=== PATIENT | female | born 1965 | race African-American/Black ===

== ENCOUNTER → 2017-08-20 | Outpatient (CLI) | payer OTHER | END | disposition home or self-care (01) | LOC: KCIC MAMMO 11:15 | DX: Z12.31 Encounter for screening mammogram for malignant neoplasm of breast (principal) | CPT/HCPCS: 77063; 77067 ==

== ENCOUNTER 2017-11-25 15:46 | Emergency (ER) | payer OTHER ==
[~2017-11-25] VITALS: Ht 170.2 cm; Wt 127.0 kg
--- NOTE | 2017-11-25 16:26 | PHYS DOC ---
Adult General Chief Complaint Chief Complaint: HYPERTENSION HPI HPI Patient is a 52 year old AA female who was sent to the ER by Dr. Stanford's office with complaints of intermittent pain in her left shoulder down to her left elbow for the last 4 days and high blood pressure. Pt states she has been taking phentermine to help with weight loss for the last month. She denies any chest pain, shortness of breath, nausea, vomiting, weakness, or swelling of her extremities. Patient states she has been having diaphoretic episodes for a few months. Currently she denies any pain in her left shoulder, she states that the pain shoots up to as high as 8 and that it waxes and wanes when it is present. Pt reports a history of migraines, diabetes, and high blood pressure, states she has been taking her medications as prescribed. She has not been monitoring her blood sugar because her glucometer is broken. Review of Systems Review of Systems Constitutional: Denies fever or chills [] Eyes: Denies change in visual acuity, redness, or eye pain [] HENT: Denies nasal congestion or sore throat [] Respiratory: Denies cough or shortness of breath [] Cardiovascular: Denies chest pain or palpitations GI: Denies abdominal pain, nausea, vomiting, or diarrhea [] : Denies dysuria or hematuria [] Musculoskeletal: Denies back pain; reports intermittent pain in her left shoulder that shoots down to her elbow for the last 4 days denies any injury Integument: Denies rash or skin lesions [] Neurologic: Denies headache, focal weakness or sensory changes [] All other systems were reviewed and found to be within normal limits, except as documented in this note. Current Medications Current Medications Current Medications Medications (Trade) Dose Ordered Sig/Gail Start Time Stop Time Status Last Admin Dose Admin Ketorolac Tromethamine (Toradol 15mg Vial) 15 mg 1X ONCE 11/25/17 20:15 11/25/17 20:16 DC 11/25/17 20:22 15 MG Sodium Chloride 1,000 ml @ 1,000 mls/hr 1X ONCE 11/25/17 18:30 11/25/17 19:29 DC 11/25/17 18:33 1,000 MLS/HR Allergies Allergies Allergies Coded Allergies Type Severity Reaction Last Updated Verified No Known Drug Allergies 11/25/17 No Physical Exam Physical Exam Constitutional: Well developed, well nourished, no acute distress, non-toxic appearance, obese. [] HENT: Normocephalic, atraumatic, bilateral external ears normal, oropharynx moist, no oral exudates, nose normal. [] Eyes: PERRLA, conjunctiva normal, no discharge. [] Neck: Normal range of motion, no tenderness, supple, no stridor. [] Cardiovascular:Heart rate regular rhythm, no murmur [] Lungs & Thorax: Bilateral breath sounds clear to auscultation [] Skin: Warm, dry, no erythema, no rash. [] Back: No tenderness, no CVA tenderness. [] Extremities: No tenderness, no cyanosis, no clubbing, ROM intact, no edema. [] Neurologic: Alert and oriented X 3, normal motor function, normal sensory function, no focal deficits noted. [] Psychologic: Affect normal, judgement normal, mood normal. [] Current Patient Data Vital Signs Vital Signs Date Time Temp Pulse Resp B/P (MAP) Pulse Ox O2 Delivery O2 Flow Rate FiO2 11/25/17 18:30 100 16 100 11/25/17 16:06 99.0 171/82 (111) Room Air 99.0 Lab Values Laboratory Tests Test 11/25/17 16:17 11/25/17 16:45 11/25/17 18:55 Glucose (Fingerstick) 195 mg/dL (70-99) H White Blood Count 6.7 x10^3/uL (4.0-11.0) Red Blood Count 4.84 x10^6/uL (3.50-5.40) Hemoglobin 13.8 g/dL (12.0-15.5) Hematocrit 41.3 % (36.0-47.0) Mean Corpuscular Volume 85 fL (79-100) Mean Corpuscular Hemoglobin 29 pg (25-35) Mean Corpuscular Hemoglobin Concent 34 g/dL (31-37) Red Cell Distribution Width 14.9 % (11.5-14.5) H Platelet Count 318 x10^3/uL (140-400) Neutrophils (%) (Auto) 56 % (31-73) Lymphocytes (%) (Auto) 37 % (24-48) Monocytes (%) (Auto) 6 % (0-9) Eosinophils (%) (Auto) 1 % (0-3) Basophils (%) (Auto) 1 % (0-3) Neutrophils # (Auto) 3.7 x10^3uL (1.8-7.7) Lymphocytes # (Auto) 2.5 x10^3/uL (1.0-4.8) Monocytes # (Auto) 0.4 x10^3/uL (0.0-1.1) Eosinophils # (Auto) 0.1 x10^3/uL (0.0-0.7) Basophils # (Auto) 0.1 x10^3/uL (0.0-0.2) Sodium Level 143 mmol/L (136-145) Potassium Level 3.5 mmol/L (3.5-5.1) Chloride Level 104 mmol/L (98-107) Carbon Dioxide Level 26 mmol/L (21-32) Anion Gap 13 (6-14) Blood Urea Nitrogen 17 mg/dL (7-20) Creatinine 1.1 mg/dL (0.6-1.0) H Estimated GFR (Cockcroft-Gault) 63.4 BUN/Creatinine Ratio 15 (6-20) Glucose Level 171 mg/dL (70-99) H Calcium Level 9.5 mg/dL (8.5-10.1) Total Bilirubin 0.2 mg/dL (0.2-1.0) Aspartate Amino Transferase (AST) 14 U/L (15-37) L Alanine Aminotransferase (ALT) 23 U/L (14-59) Alkaline Phosphatase 97 U/L (46-116) Troponin I Quantitative < 0.017 ng/mL (0.000-0.055) < 0.017 ng/mL (0.000-0.055) UD-Cnd-P-Type Natriuretic Peptide < 5 pg/mL (0-124) Total Protein 7.7 g/dL (6.4-8.2) Albumin 3.7 g/dL (3.4-5.0) Albumin/Globulin Ratio 0.9 (1.0-1.7) L Laboratory Tests 11/25/17 16:45 Laboratory Tests 11/25/17 16:45 EKG EKG 1609 EKG sinus tach, no STEMI read by Dr. Burch[ 1845 EKG sinus rhythm no STEMI read by Dr. Borges] Radiology/Procedures Radiology/Procedures PROCEDURE: CHEST PA & LATERAL CHEST PA LATERAL History: ER PATIENT. HYPERTENSION. TACHYCARDIA. LEFT ARM PAIN Hx HTN, DIABETES. NO PRIORS. Comparison: None are available Heart size: Within normal limits. Pat/mediastinum: There is mild fullness of the right inferior hilum. This could represent mild lymph node enlargement or small mass. Lungs: No focal airspace consolidation. Pleura: No significant effusion. Mild smooth pleural thickening on the right. Greatest at the right apex. Pneumothorax: None visualized Bones: Regional skeleton appears grossly intact. Miscellaneous: None Impression: 1. Mild nodular prominence of the right inferior hilum. Significance uncertain, but could represent a small mass or mild lymph node enlargement. If no prior outside chest radiograph available for comparison, CT chest could further evaluate. 2. Mild right pleural thickening, greatest superiorly. 3. No evidence of acute infiltrate.[] Course & Med Decision Making Course & Med Decision Making Pertinent Labs and Imaging studies reviewed. (See chart for details) Dx: adverse drug effect, left shoulder strain DDX: ACS, MO, GERD EKGs x2 and troponin <0.017 x2 in ER. Pt's blood pressure returned to normal. Pt was given 1 L of NS in the ER. Instructed pt to stop taking phentermine for weight loss as this causes hypertension and tachycardia. Pt was given 15 mg IV toradol for shoulder pain and Rx written for orphenadrine. Continue taking your blood pressure medication as prescribed. Follow up with your primary care doctor in 2-3 days for re-evaluation. Return to the ER if your symptoms worsen Dragon Disclaimer Dragon Disclaimer This electronic medical record was generated, in whole or in part, using a voice recognition dictation system. Departure Departure Impression: Primary Impression: Adverse drug effect Additional Impression: Left shoulder strain Disposition: 01 HOME, SELF-CARE Condition: STABLE Referrals: JUAN JOSE STANFORD MD (PCP) Patient Instructions: Shoulder Pain, Shoulder, Range of Motion Exercises Additional Instructions: Fill prescription and take as directed for shoulder pain. Stop taking Phentermine. Continue taking your blood pressure medication as prescribed. Follow up with your primary care doctor in 2-3 days for re-evaluation. Return to the ER if your symptoms worsen. Scripts Orphenadrine Citrate (ORPHENADRINE CITRATE) 100 Mg Tablet.er 1 TAB PO BID PRN for PAIN for 10 Days, #20 TAB 0 Refills Prov: BOGUSLAW,WILMA D DIRECTOR OF GIFT PLANNING 11/25/17 Naproxen (NAPROXEN) 500 Mg Tablet.dr 1 TAB PO BID PRN for PAIN, #20 TAB 0 Refills Prov: WILMA MACARIO APRN 11/25/17 Problem Qualifiers Primary Impression: Adverse drug effect Encounter type: initial encounter Qualified Codes: T50.905A - Adverse effect of unspecified drugs, medicaments and biological substances, initial encounter Additional Impression: Left shoulder strain Encounter type: initial encounter Qualified Codes: S46.912A - Strain of unspecified muscle, fascia and tendon at shoulder and upper arm level, left arm , initial encounter WILMA MACARIO APRN Nov 25, 2017 16:26
--- NOTE | 2017-11-25 16:27 | EKG ---
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
[2017-11-25 16:56] LABS: BASO # 0.1 x10^3/uL (0.0-0.2); BASO % 1 % (0-3); EOS # 0.1 x10^3/uL (0.0-0.7); EOS % 1 % (0-3); HEMATOCRIT 41.3 % (36.0-47.0); HEMOGLOBIN 13.8 g/dL (12.0-15.5); LYMPH # 2.5 x10^3/uL (1.0-4.8); LYMPH % 37 % (24-48); MEAN CORPUSCULAR HEMOGLOBIN 29 pg (25-35); MEAN CORPUSCULAR HGB CONC 34 g/dL (31-37); MEAN CORPUSCULAR VOLUME 85 fL (79-100); MONO # 0.4 x10^3/uL (0.0-1.1); MONO % 6 % (0-9); NEUT # 3.7 x10^3uL (1.8-7.7); NEUT % 56 % (31-73); PLATELET COUNT 318 x10^3/uL (140-400); RED BLOOD COUNT 4.84 x10^6/uL (3.50-5.40); RED CELL DISTRIBUTION WIDTH 14.9 % (11.5-14.5); WHITE BLOOD COUNT 6.7 x10^3/uL (4.0-11.0)
[2017-11-25 17:10] LABS: CALCIUM 9.5 mg/dL (8.5-10.1); CREATININE 1.1 mg/dL (0.6-1.0); GFR 63.4; POTASSIUM 3.5 mmol/L (3.5-5.1)
--- NOTE | 2017-11-25 17:12 | RAD ---
CHEST PA LATERAL History: ER PATIENT. HYPERTENSION. TACHYCARDIA. LEFT ARM PAIN Hx HTN, DIABETES. NO PRIORS. Comparison: None are available Heart size: Within normal limits. Pat/mediastinum: There is mild fullness of the right inferior hilum. This could represent mild lymph node enlargement or small mass. Lungs: No focal airspace consolidation. Pleura: No significant effusion. Mild smooth pleural thickening on the right. Greatest at the right apex. Pneumothorax: None visualized Bones: Regional skeleton appears grossly intact. Miscellaneous: None Impression: 1. Mild nodular prominence of the right inferior hilum. Significance uncertain, but could represent a small mass or mild lymph node enlargement. If no prior outside chest radiograph available for comparison, CT chest could further evaluate. 2. Mild right pleural thickening, greatest superiorly. 3. No evidence of acute infiltrate. Electronically signed by: Rios Hand MD (11/25/2017 5:08 PM) [facility]
[2017-11-25 17:16] LABS: ALBUMIN 3.7 g/dL (3.4-5.0); ALBUMIN/GLOBULIN RATIO 0.9 (1.0-1.7); TOTAL BILIRUBIN 0.2 mg/dL (0.2-1.0); TOTAL PROTEIN 7.7 g/dL (6.4-8.2)
[2017-11-25 18:30] VITALS: BP 129/89
[2017-11-25] MEDS ORDERED: IV NORMAL SALINE 1000ML BAG 1,000 ML IV ONE (18:30)
--- NOTE | 2017-11-25 19:39 | EKG ---
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
[2017-11-25] MEDS ORDERED: KETOROLAC 15 MG/ML VIAL. IV ONE (20:15)
[2017-11-25] MEDS ORDERED: ORPH100T PO (20:28)
[2017-11-25] MEDS ORDERED: NAPR500T8 PO (20:28)
== END 2017-11-25 20:47 | disposition home or self-care (01) ==
LOC: ER 15:46
DX: S46.911A Strain of unspecified muscle, fascia and tendon at shoulder and upper arm level, right arm, initial encounter (principal); T50.5X5A Adverse effect of appetite depressants, initial encounter; I10 Essential (primary) hypertension; G43.909 Migraine, unspecified, not intractable, without status migrainosus; E11.9 Type 2 diabetes mellitus without complications; X58.XXXA Exposure to other specified factors, initial encounter; Y93.89 Activity, other specified; Y92.89 Other specified places as the place of occurrence of the external cause; Y99.8 Other external cause status
CPT/HCPCS: 36415; 71046; 80053; 82962; 83880; 84484; 85025; 93005; 96374; 99285; J1885; J7030

== ENCOUNTER 2017-12-16 10:49 | Emergency (ER) | payer OTHER ==
[~2017-12-16] VITALS: Ht 170.2 cm; Wt 127.0 kg
[~2017-12-16 10:49] MED LIST: NAPR500T8 PO; ORPH100T PO
[2017-12-16 11:15] VITALS: BP 149/81
--- NOTE | 2017-12-16 11:43 | RAD ---
History: Left hip pain for 3 weeks. No known injury. Comparison: None. Findings: AP view of the pelvis. AP and frog-leg views of left hip. Mild degeneration of the pubic symphysis is seen. Moderate sacroiliac degeneration is present. No acute fracture or dislocation is identified. Minimal left hip degeneration is seen. Impression: Minimal degeneration. No acute osseous abnormality identified. Electronically signed by: Rios Rodriguez MD (12/16/2017 11:39 AM) [place] [id number]
--- NOTE | 2017-12-16 12:05 | RAD ---
LUMBAR SPINE 2-3V Clinical Indication: LOW BACK, LT HIP PAIN X 3 WEEKS, NO KNOWN INJURY Comparison: Lumbar spine, 3 views, August 20, 2008. Findings: 5 lumbar type vertebral bodies. Grade 1 anterolisthesis of L4 on L5. Finding is new from prior study. Mild disc space narrowing of L4/L5. Other disc spaces are maintained. Mild degenerative endplate spurring. No loss of vertebral body height. IMPRESSION: 1. No compression fracture. 2. Grade 1 anterolisthesis of L4 on L5. Electronically signed by: Iván Tang MD (12/16/2017 12:02 PM) [id number]
--- NOTE | 2017-12-16 12:58 | PHYS DOC ---
Past Medical History Past Medical History: Hypertension Past Surgical History: Cholecystectomy, Hysterectomy Additional Past Surgical Histo: breast tumor removal Alcohol Use: None Drug Use: None Adult General Chief Complaint Chief Complaint: HIP PAIN HPI HPI Patient is a 52 year old female with history of hypertension who presents today complaining of 10 out of 10 left low back pain/hip pain radiating to the left lower extremity that has been going on for 3 weeks. Patient denies any injury. She states the pain is worse on certain sitting positions. She describes the pain as sharp and intermittent. She states she would like us to fix this problem. Patient denies any loss of bowel bladder function. Review of Systems Review of Systems Constitutional: Denies fever or chills [] : Denies dysuria or hematuria [] Musculoskeletal: Reports left hip pain radiating to the left lower extremity. Integument: Denies rash or skin lesions [] Neurologic: Denies headache, focal weakness or sensory changes [] All other systems were reviewed and found to be within normal limits, except as documented in this note. Allergies Allergies Allergies Coded Allergies Type Severity Reaction Last Updated Verified No Known Drug Allergies 11/25/17 No Physical Exam Physical Exam Constitutional: Well developed, well nourished, no acute distress, non-toxic appearance. [] Abdomen: Bowel sounds normal, soft, no tenderness, no masses, no pulsatile masses. [] Skin: Warm, dry, no erythema, no rash. [] Back: Obese patient, slight tenderness on palpation of the left SI joint. Tenderness, no CVA tenderness. [] Extremities: No tenderness, no cyanosis, no clubbing, ROM intact, no edema. [] Neurologic: Alert and oriented X 3, normal motor function, normal sensory function, no focal deficits noted. [] Psychologic: Affect normal, judgement normal, mood normal. [] Current Patient Data Vital Signs Vital Signs Date Time Temp Pulse Resp B/P (MAP) Pulse Ox O2 Delivery O2 Flow Rate FiO2 12/16/17 11:15 98.2 109 16 149/81 (103) 100 Room Air 98.2 EKG EKG [] Radiology/Procedures Radiology/Procedures PROCEDURE: LUMBAR SPINE 2-3V LUMBAR SPINE 2-3V Clinical Indication: LOW BACK, LT HIP PAIN X 3 WEEKS, NO KNOWN INJURY Comparison: Lumbar spine, 3 views, August 20, 2008. Findings: 5 lumbar type vertebral bodies. Grade 1 anterolisthesis of L4 on L5. Finding is new from prior study. Mild disc space narrowing of L4/L5. Other disc spaces are maintained. Mild degenerative endplate spurring. No loss of vertebral body height. IMPRESSION: 1. No compression fracture. 2. Grade 1 anterolisthesis of L4 on L5. Electronically signed by: Iván Tang MD (12/16/2017 12:02 PM) [id number] DICTATED and SIGNED BY: IVÁN TANG MD DATE: 12/16/17 1159 PROCEDURE: HIP LEFT 2V WITH PELVIS History: Left hip pain for 3 weeks. No known injury. Comparison: None. Findings: AP view of the pelvis. AP and frog-leg views of left hip. Mild degeneration of the pubic symphysis is seen. Moderate sacroiliac degeneration is present. No acute fracture or dislocation is identified. Minimal left hip degeneration is seen. Impression: Minimal degeneration. No acute osseous abnormality identified. Electronically signed by: Rios Desouza MD (12/16/2017 11:39 AM) [id number] DICTATED and SIGNED BY: RIOS DESOUZA MD DATE: 12/16/17 1138 Course & Med Decision Making Course & Med Decision Making Pertinent Labs and Imaging studies reviewed. (See chart for details) This is a 52-year-old female patient presenting to the ED today with left low back pain/hip pain radiating to the left lower extremity, no known injury. Left hip x-rays interpreted by radiologist were noted for DJD otherwise no acute findings. Lumbar spine x-rays interpreted by radiologist were negative fracture , noted for grade 1 anterolisthesis of L4 on L5. Patient was discharged with diclofenac, Medrol Dosepak, Valium. Provided pain clinic, she has a PCP, also provided neurosurgeon for follow-up. Dragon Disclaimer Dragon Disclaimer This electronic medical record was generated, in whole or in part, using a voice recognition dictation system. Departure Departure Impression: Primary Impression: Sciatica, left side Additional Impressions: Degenerative joint disease (DJD) of hip Left hip pain Disposition: 01 HOME, SELF-CARE Condition: STABLE Referrals: RIOS WRIGHT MD (PCP) follow up in one week SARAH PATRICK MD follow up in one week NUNO BUSTOS MD follow up in one week Patient Instructions: Arthritis, Nonspecific, Hip Pain, Sciatica Additional Instructions: You were evaluated in the emergency room and provided a couple's specialists for follow-up. Contact the offices and set up a follow-up appointment. Try to exercise and lose weight. Scripts Methylprednisolone (MEDROL) 4 Mg Tab.ds.pk 1 PKG PO UD, #1 PKG Prov: ARTEMDICKCHRISTIANE APRN 12/16/17 Diclofenac Sodium (DICLOFENAC SODIUM) 50 Mg Tablet.dr 1 TAB PO BID, #30 TAB 0 Refills Prov: CHRISTIANE PIMENTEL APRN 12/16/17 Diazepam (VALIUM) 5 Mg Tablet 5 MG PO TID, #20 TAB Prov: CHRISTIANE PIMENTEL APRN 12/16/17 Problem Qualifiers Additional Impressions: Degenerative joint disease (DJD) of hip Osteoarthritis type: unspecified Laterality: left Qualified Codes: M16.12 - Unilateral primary osteoarthritis, left hip MARGARITOCHRISTIANE HERNANDEZ Dec 16, 2017 12:58
[2017-12-16] MEDS ORDERED: DIAZ5TAB PO (13:03)
[2017-12-16] MEDS ORDERED: METH4TAB2 PO (13:03)
[2017-12-16] MEDS ORDERED: DICL50TA4 PO (13:03)
== END 2017-12-16 13:14 | disposition home or self-care (01) ==
LOC: ER 10:49
DX: M16.12 Unilateral primary osteoarthritis, left hip (principal); M54.42 Lumbago with sciatica, left side; I10 Essential (primary) hypertension; Z90.49 Acquired absence of other specified parts of digestive tract; Z90.710 Acquired absence of both cervix and uterus; E66.9 Obesity, unspecified; Z68.41 Body mass index [BMI] 40.0-44.9, adult
CPT/HCPCS: 72100; 73502; 99284

== ENCOUNTER → 2018-02-19 | Outpatient (CLI) | payer OTHER ==
[~2018-02-19] MED LIST changes: +DIAZ5TAB PO; +DICL50TA4 PO; +METH4TAB2 PO
--- NOTE | 2018-02-19 13:16 | KCIC ---
MRI Lumbar Spine without contrast History: Left sciatic nerve pain, low back pain, progressive left leg pain and spasms Technique: Multiplanar, multi sequential noncontrast MR imaging was performed of the lumbar spine. Comparison: None Findings: Lumbar vertebral body stature is maintained. There is grade 1 anterior spondylolisthesis L4-5. There is mild degenerative disc disease at L5-S1 and L4-5. There are small hemangiomas such as of L4, L3, and L2 vertebral bodies. 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 T10-11: This level was not included on the axial images, barely included on sagittal images. There is likely posterior protrusion at this level. T11-12: This level was not included on the axial images. There is posterior protrusion/small extrusion with likely mild spinal stenosis. L3-L4: There is mild prominence of posterior epidural fat. There is mild buckling of the ligamentum flavum. Spinal canal and neural foramina are overall adequate. L4-L5: There is mild facet hypertrophic change, some fluid in the left facet articulation. There is mild buckling of the ligamentum flavum. There is mild partial uncovering of the posterior aspect of the disc due to spondylolisthesis, superimposed minimal bulge and also superimposed protrusion more eccentric to the inferior left neural foramen and left extraforaminal region. There is left posterior annular tear. There is moderate to severe narrowing of the left neural foramen by disc osteophyte complex and protrusion with contact of the undersurface exiting left L4 nerve root in the neural foramen greater distally, also contacted in the proximal extraforaminal region. There is moderate narrowing of the far lateral recesses bilaterally with contact of the descending L5 nerve roots, mild narrowing of the transverse dimension of the central canal. L5-S1: There is negligible disc osteophyte complex greater in the inferior left neural foramen and far left lateral recess, near the descending left S1 nerve root without displacement. There is [id number] narrowing of the inferior left neural foramen with contact undersurface exiting left L5 nerve root, right neural foramen overall adequate. Impression: 1. There is moderate narrowing of the far lateral recesses bilaterally at L4-5 with contact of the descending L5 nerve roots. There is moderate to severe narrowing of the left L4-5 neural foramen in part by disc osteophyte complex and protrusion with contact of the exiting left L4 nerve root in the neural foramen and proximal extraforaminal region. There is also [id number] narrowing of the left L5-S1 neural foramen. 2. There is mild degenerative disc disease L4-5 and L5-S1. There is grade 1 anterior spondylolisthesis L4-5 at which there is facet degenerative change. 3. Not fully evaluated, there are likely protrusions at T10-11 and T11-12. Electronically signed by: Keith Reyes MD (02/19/2018 1:12 PM) [id number]
== END | disposition home or self-care (01) ==
LOC: KCIC MRI 11:25
PROVIDERS: ATTEND Family Medicine
DX: M51.17 Intervertebral disc disorders with radiculopathy, lumbosacral region (principal); M43.16 Spondylolisthesis, lumbar region; M25.78 Osteophyte, vertebrae
CPT/HCPCS: 72148

== ENCOUNTER → 2018-04-08 | Outpatient (CLI) | payer OTHER ==
[~2018-04-08] MED LIST changes: +ASPI81TA50 PO; +ATOR10TA60 PO; +CYCL10TA2 PO; +DAPA5TAB PO; +DICL75TA PO; +LOSA1TAB22 PO; +TOPI25CA12 PO
--- NOTE | 2018-04-08 21:02 | PAIN ---
DATE OF SERVICE: 04/08/2018 INITIAL CONSULTATION FOR PAIN CLINIC CHIEF COMPLAINT: Low back and left lower extremity pain. HISTORY OF PRESENT ILLNESS: This is a 53-year-old female who returned with history of low back and left lower extremity pain for several months about 4 months, not a result of any specific injury or action she is aware of, but getting worse with walking, standing, change in positions, especially sitting at work for a prolonged period of time greater than an hour. The patient reports it awakens her from sleep at least once or twice a night, does not affect her bowel or bladder control. It does affect her ability to walk significantly. She has been limping with favoring her left lower extremity. The patient reports pain is intermittent in intensity, but always present, changes during the day with activity, has tingling, numbness, radiating, sharp, throbbing and stabbing across the low back and radiating to the left lower extremity, some in the right leg as well, mostly in the anterior aspect of the thigh, medial thigh, medial lower leg into the foot involving primarily the great toe, but all the toes with tingling and numbness in the foot, also in the posterior gluteus, posterior thighs bilaterally with a cramping sensation. The patient reports she has had physical therapy about 2 months ago, which was only temporarily helpful, did not change, decrease the pain significantly at all. She has been doing the exercises from the therapy since that time as well. She also tried a muscle relaxer, she is not sure of the name and naproxen, which does help the pain very significantly. She did have a Medrol Dosepak; however, from her primary physician, which helped significantly about 75% for about a week until she was taking and the pain returned slowly, but is not quite at baseline level even now and that was about a month ago. The patient did have an MRI scan of the lumbar spine showing moderate narrowing of the far lateral recess, bilateral L4-L5 with contact to descending L5 nerve root, moderate to severe narrowing of the left L4-L5 neural foramen in part by disk osteophyte complex and protrusion with contact of the exiting left L4 nerve root in the neural foramen and proximal extraforaminal region with [id number] narrowing of the left L5-S1 neural foramen. The patient rates her disability rate from 0-10, 10 being the worst, is a 6 with family and home responsibilities and recreation and social activity and sexual behavior and self-care, 5 with occupation activities and 4 with life support activities. The patient reports no loss of motor function with significant fatigability, left lower extremity compared to the right when sitting and walking. PAST MEDICAL HISTORY: Significant for type 2 diabetes, cigarette smoking about a third of a pack a day for the past 26 years, history of hypertension, obesity. PREVIOUS SURGERIES: Include hysterectomy 2004, cholecystectomy and right breast cyst, which was benign. CURRENT MEDICATIONS: Include diclofenac, losartan, atorvastatin, topiramate, cyclobenzaprine, daily baby aspirin and Farxiga for diabetes. ALLERGIES: The patient has no known drug allergies. FAMILY HISTORY: Significant for no major medical problems or conditions that she reports. SOCIAL HISTORY: The patient drinks alcohol about once every 2 months, smokes about a one-third pack of cigarettes and has for many years. Does not use any illegal, illicit or recreational drugs or other substances. 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 REVIEW OF SYSTEMS: The patient's review of systems is positive for those items mentioned in history of present illness. All systems reviewed and otherwise negative. It is complete, full and well documented on the patient's chart. PHYSICAL EXAMINATION: VITAL SIGNS: The patient's blood pressure is 155/83, pulse 109, respirations 17, temperature is 97.7 degrees Fahrenheit, height is 5 feet 1 inches, weight 289 pounds. GENERAL: The patient is awake, alert, oriented, appropriate, very pleasant demeanor. HEENT: Head shows normocephalic, atraumatic. Extraocular movements intact and symmetrical. Oral cavity: Mucous membranes are moist and pink. Dentition is intact. NECK: Shows anterior throat supple without palpable lymphadenopathy noted. Swallow reflex symmetrical. CHEST: Shows normal with inspection. Breath sounds clear to auscultation bilaterally. HEART: Shows S1, S2 clear. No murmurs auscultated. ABDOMEN: Obese, soft, nontender, nondistended. No palpable organomegaly is noted. No rebound or guarding demonstrated. BACK: Shows spine grossly in the midline. Normal appearing thoracic kyphosis and lumbar lordotic curvature. Lumbar paraspinous muscle shows symmetrical on inspection. On palpation shows some moderate tenderness but only diffusely without radiation. The patient shows good rotational motion of lumbar spine, both laterally as well as extension and flexion without significant increase in pain. No tenderness over the sacrum or sacroiliac region. No spinous processes. EXTREMITIES: Lower extremities show deep tendon reflexes 2+ in the patellar, 1+ talocalcaneal tendon. Peripheral pulses are 1+ posterior tibia. No peripheral edema is noted. Lower extremities are warm and dry to touch, equal in color and appearance bilaterally. The patient's straight leg raise noted to be positive on the left at about 40 degrees with decreased pain with knee flexion, but right side is negative. Gaenslen's and Cosme's maneuvers are negative bilaterally. The patient is able to stand, stand on her toes without significant difficulty or loss of balance, is favoring her left lower extremity with walking and does have slight antalgic gait. Denies any assistive devices, but does have a slight limp when she ambulates. SKIN: Shows warm and dry, good turgor. No edema. No sores, rashes or bruising. IMPRESSION: 1. This is a 53-year-old female with about a 4-month history of increasing pain, low back, left lower extremity in a radicular pattern in L4-L5 dermatomal distribution, status post physical therapy as well as doing home exercises and walking daily with still significant radicular pain in this distribution. 2. Type 2 diabetes. 3. Hypertension. 4. Cigarette smoking. 5. Obesity. PLAN: Options were discussed with the patient including conservative medical management, physical therapy, interventional techniques and she has done physical therapy with some minimal decrease in pain and continues to do stretching and strengthening exercises daily. We discussed interventional techniques. She would like to pursue a lumbar epidural steroid injection. We discussed this with using description as well as anatomical models to describe the procedure. The patient wait for preauthorization and we will have her return to clinic once authorization is obtained for a L4-L5 lumbar epidural steroid injection with the patient's history and MRI scan findings as noted. We will maintain exercise and stretching activities and we will wait for preauthorization and have her return for lumbar epidural steroid injection at that time. NUNO BUSTOS MD DR: SADI/ramila JOB#: [id number] / [id number] Rios Barba MD
== END | disposition home or self-care (01) ==
LOC: PNCL 12:39
PROVIDERS: ATTEND Anesthesiology
DX: M79.605 Pain in left leg (principal); M54.5 Low back pain; E11.9 Type 2 diabetes mellitus without complications; I10 Essential (primary) hypertension; F17.210 Nicotine dependence, cigarettes, uncomplicated; E66.9 Obesity, unspecified
CPT/HCPCS: G0463

== ENCOUNTER → 2018-04-27 | Outpatient (CLI) | payer OTHER ==
[~2018-04-27] MED LIST changes: +IOHEXOL 180 MG/ML 10 ML VIAL. ONE; +methylPREDNISolone ACETATE 40 MG/ML VIAL. ONE; +methylPREDNISolone ACETATE 80 MG/ML VIAL. ONE
--- NOTE | 2018-04-28 04:42 | PAIN ---
DATE OF SERVICE: 04/27/2018 PROGRESS NOTE FOR PAIN CLINIC DIAGNOSIS: Lumbar radiculopathy with lumbar degenerative disk disease. HISTORY OF PRESENT ILLNESS: The patient is a 53-year-old female who returns for followup status post initial evaluation and preauthorization for injection today. The patient would like to proceed. She has obtained this. Reports pain in the low back, bilateral lower extremity as it was previously, left slightly more than the right in the posterior gluteus, posterior lateral thigh, lateral anterior thigh, medial thigh on the left side, radiating with tingling, burning, numbness, sharp and shooting pain, rates a 7 on a scale of 10 at its worst, average and at its least and is a 7 today. The patient reports it can be constant with walking and standing and is awakening her from sleep as well. The patient reports no new motor or sensory deficits and no new bowel or bladder incontinence. PHYSICAL EXAMINATION: VITAL SIGNS: The patient's blood pressure is 174/101, pulse 114, respirations are 18 and temperature is 98.2 degrees Fahrenheit. Height is 5 feet 1 inch. GENERAL: The patient is awake, alert, oriented, appropriate and very pleasant demeanor. HEENT: Head shows normocephalic and atraumatic. Extraocular movements are intact and symmetrical. Oral cavity: Mucous membranes moist and pink. Dentition is intact. NECK: Shows anterior throat supple without palpable lymphadenopathy noted. Swallow reflex is symmetrical. CHEST: Shows normal on inspection. Breath sounds clear to auscultation bilaterally. HEART: Shows S1 and S2 clear. No murmurs auscultated. ABDOMEN: Soft, nontender and nondistended. No palpable organomegaly is noted. No rebound or guarding demonstrated. BACK: Shows spine grossly in the midline. Normal appearing thoracic kyphosis and lumbar lordotic curvature. Lumbar paraspinous muscle shows symmetrical on inspection and on palpation shows some moderate tenderness diffusely without radiation and again tattooing is noted. EXTREMITIES: The patient shows lower extremity deep tendon reflexes at 2+ in the patellar, 1+ tendo-calcaneus tendons. Motor exam is approximately 4 on a scale of 5 on the left and 5/5 on the right with dorsiflexion and extension. Peripheral pulses are 1+ posterior tibial. No peripheral edema is noted bilaterally. Options were discussed with the patient. The patient's old chart was reviewed as well as her current medication regimen updated. Current review of systems updated today as well. We will proceed with a lumbar epidural steroid injection today with fluoroscopic guidance. Risks were again discussed including, but not limited to bleeding, infection, possibility of epidural hematoma, subsequent neurological compromise, dural puncture, headaches, spinal cord and/or nerve damage, side effects of steroid medication and poor results regarding pain control. The patient understands and wished to proceed. The patient will return to the clinic in approximately 2 weeks for followup, was counseled as to return appointment, activity level and side effects to be aware of. DIAGNOSIS: Lumbar radiculopathy with lumbar degenerative disk disease. PROCEDURE: Lumbar epidural steroid injection, translaminar approach at L4-L5 level using C-arm fluoroscopic guidance under sterile prep and drape using local anesthetic. MEDICATION INJECTED: A total of 120 mg Depo-Medrol plus 10 mL of preservative-free normal saline and 2 mL of Isovue for contrast. CONDITION AT DISCHARGE: Stable. The patient tolerated procedure well and had no complications. NUNO BUSTOS MD DR: SADI/ramila JOB#: [id number] / [id number]
== END | disposition home or self-care (01) ==
LOC: PNCL 10:36
PROVIDERS: ATTEND Anesthesiology
DX: M51.16 Intervertebral disc disorders with radiculopathy, lumbar region (principal)
CPT/HCPCS: 62323; J1030; J1040; Q9965

== ENCOUNTER → 2018-05-17 | Outpatient (CLI) | payer OTHER ==
[~2018-05-17] MED LIST changes: -IOHEXOL 180 MG/ML 10 ML VIAL. ONE; -methylPREDNISolone ACETATE 40 MG/ML VIAL. ONE; -methylPREDNISolone ACETATE 80 MG/ML VIAL. ONE
--- NOTE | 2018-05-18 07:02 | PAIN ---
DATE OF SERVICE: 05/17/2018 PROGRESS NOTE FOR PAIN CLINIC DIAGNOSES: Lumbar radiculopathy with lumbar degenerative disk disease. HISTORY OF PRESENT ILLNESS: The patient is a 53-year-old female who returns for followup status post lumbar epidural steroid injection x 1. The patient reports about 90% improvement for the first 3 weeks. The patient reports she has been doing very well. Pain is returning now, however, in the low back and into the left lower extremity as it was previously, but not nearly as bad as it was. The patient reports still some pain in the low back, left lower extremity, into the lateral aspect of the thigh, anterior thigh, medial thigh and knee and in the lateral thigh with some extent as well. The patient reports doing quite well. The pain has been in the 0 level for most of the time since her last injection. The patient reports it is on and off in intensity, worse with standing, walking. When she was walking several days ago about 20-30 minutes at a shopping mall, pain began to return when she started to hunch over and leaning on things again with pain spiking up to about a 7 on a scale of 10 at its worse. The patient reports 0 today as she is sitting down, much better with sitting, resting. She is sleeping better, increasing her activity with greater ease and comfort, doing work activities, home activities, driving with much greater ease as well. The patient reports no new motor or sensory deficits, no new bowel or bladder incontinence. Still some radicular pain in the left lower extremity as it was, but much improved. PHYSICAL EXAMINATION: VITAL SIGNS: The patient's blood pressure is 156/97, pulse 109, respirations are 17, temperature is 97.6 degrees Fahrenheit. Height is 5 feet 11 inches, weight is 291 pounds. GENERAL: The patient is awake, alert, oriented, appropriate, very pleasant demeanor. HEENT: Head is normocephalic, atraumatic. Extraocular movements are intact and symmetrical. Oral cavity, mucous membranes are moist and pink. Dentition is intact. NECK: Shows anterior throat supple without palpable lymphadenopathy noted. Swallow reflex symmetrical. CHEST: Shows normal on inspection. Breath sounds clear to auscultation bilaterally. HEART: Shows S1, S2 clear. No murmurs auscultated. ABDOMEN: Obese, soft, nontender, nondistended. No palpable organomegaly is noted. BACK: Shows spine grossly in the midline. Normal appearing thoracic kyphosis and lumbar lordotic curvature. Lumbar paraspinous muscle shows symmetrical on inspection, with palpation shows some moderate tenderness diffusely, but only in the low lumbar distribution, but only diffusely without radiation, without atrophy, hypertrophy or asymmetry. No trigger points. The patient has good rotational motion of lumbar spine both laterally greater than 10 degrees right and left as well as extension greater than 10 degrees, forward flexion 45 degrees without significant pain reported. EXTREMITIES: The patient's lower extremities show deep tendon reflexes at 2+ in the patellar, 1+ tendo calcaneus tendons. Motor exam is approximately 4 on a scale of 5 on the left with dorsiflexion and extension, 5/5 on the right. Peripheral pulses are 1+ posterior tibia. No peripheral edema is noted bilaterally. Options were discussed with the patient. The patient's old chart was reviewed as her current medication regimen updated. Current review of systems updated today as well and we will preauthorize the patient for a second lumbar epidural steroid injection. She is doing quite well after the first injection, still with radicular pain in the left lower extremity, L4-L5 dermatomal distribution. We will have her return for a L4-L5 translaminar level injection. The patient will continue stretching and strengthening exercises as she has been doing. Also, continue walking daily and exercise as tolerated. We will have the patient return in approximately 2 weeks and plan on second lumbar epidural steroid injection at that time. NUNO BUSTOS MD DR: SADI/ramila JOB#: [id number] / [id number]
== END | disposition home or self-care (01) ==
LOC: PNCL 14:36
PROVIDERS: ATTEND Anesthesiology
DX: M51.16 Intervertebral disc disorders with radiculopathy, lumbar region (principal)
CPT/HCPCS: G0463

== ENCOUNTER → 2018-07-16 | Outpatient (CLI) | payer OTHER ==
[~2018-07-16] MED LIST changes: +LIDOCAINE 1% PF 2 ML VIAL. ONE; +methylPREDNISolone ACETATE 40 MG/ML VIAL. ONE; +methylPREDNISolone ACETATE 80 MG/ML VIAL. ONE
--- NOTE | 2018-07-17 04:14 | PAIN ---
DATE OF SERVICE: 07/16/2018 PROGRESS NOTE FOR PAIN CLINIC: DIAGNOSES: Lumbar radiculopathy with lumbar degenerative disk disease. HISTORY OF PRESENT ILLNESS: The patient is a 53-year-old female who returns for followup status post lumbar epidural steroid injection x 1 and preauthorization for second injection. The patient obtained that and would like to proceed, still has pain in the low back into the left lower extremity as it was previously. The patient reports it is still in the posterior gluteus, posterolateral thigh, lateral anterior thigh, medial thigh, medial lower leg, worse with walking, standing, changing positions, better with sitting and lying down, reports it does not awaken her from sleep at night. Reports after the last injection, she was doing better with distance walking and doing household activities, traveling with greater ease and comfort, now the pain is returning as described. The patient reports it is dull and aching, sometimes shooting in the leg, rates it as 10 on a scale of 10 at its worst, least and its average and is a 10 today. The patient reports no new motor or sensory deficits, no new bowel or bladder incontinence or other complaints. PHYSICAL EXAMINATION: VITAL SIGNS: The patient's blood pressure 151/93, pulse 103, respirations 18, temperature 97.3 degrees Fahrenheit, height is 5 feet 1 inch, weight is 292 pounds. GENERAL: The patient is awake, alert, oriented, appropriate, very pleasant demeanor. HEENT: Head shows normocephalic, atraumatic. Extraocular muscles are intact and symmetrical. Oral cavity: Mucous membranes moist and pink. Dentition is intact. NECK: Shows anterior throat supple without palpable lymphadenopathy noted. Swallow reflex is symmetrical. CHEST: Shows normal on inspection. Breath sounds clear to auscultation bilaterally. HEART: Shows S1, S2 clear. No murmurs auscultated. ABDOMEN: Soft, obese, nontender, nondistended. BACK: Shows spine grossly in the midline. Lumbar paraspinous muscle shows symmetrical with inspection, with palpation shows some mild tenderness in the middle and lower distribution of paraspinous muscles, but only diffusely without radiation and the muscles are symmetrical without trigger points, atrophy or hypertrophy. No tenderness over the spinous processes or sacrum. The patient shows good rotational motion of lumbar spine, both laterally as well as extension and flexion without difficulty. EXTREMITIES: Lower extremities show deep tendon reflexes 2+ in the patellar, 1+ tendo-calcaneus tendons are equal. Motor exam is approximately 4 on a scale of 5 with left dorsiflexion, extension, 5/5 on the right. Peripheral pulses are 1+ posterior tibia. No peripheral edema is noted bilaterally. Options were discussed with the patient. The patient's old chart was reviewed as her current medication regimen updated. Current review of systems updated today as well. We will proceed with a second in a series of lumbar epidural steroid injection today with fluoroscopic guidance. Risks were again discussed including, but not limited to bleeding, infection, possibility of epidural hematoma, subsequent neurologic compromise, dural puncture headaches, spinal cord and/or nerve damage, side effects of steroid medication and poor results regarding pain control. The patient understands and wished to proceed. The patient will return to clinic in approximately 2 weeks for followup, was counseled as to return appointment, activity level and side effects to be aware of. DIAGNOSES: Lumbar radiculopathy with lumbar degenerative disk disease. PROCEDURE: Lumbar epidural steroid injection, translaminar approach L4-L5 level using C-arm fluoroscopic guidance under sterile prep and drape using local anesthetic. MEDICATION INJECTED: A total of 120 mg Depo-Medrol plus 10 mL of preservative-free normal saline and 2 mL of contrast. CONDITION AT DISCHARGE: Stable. The patient tolerated the procedure well, had no complications. NUNO BUSTOS MD DR: SADI/ramila JOB#: [id number] / [id number]
== END ==
LOC: PNCL 08:32
PROVIDERS: ATTEND Anesthesiology
DX: M51.16 Intervertebral disc disorders with radiculopathy, lumbar region (principal)
CPT/HCPCS: 62323; J1030; J1040

== ENCOUNTER → 2018-08-02 | Outpatient (CLI) | payer OTHER ==
[~2018-08-02] MED LIST changes: -LIDOCAINE 1% PF 2 ML VIAL. ONE; -methylPREDNISolone ACETATE 40 MG/ML VIAL. ONE; -methylPREDNISolone ACETATE 80 MG/ML VIAL. ONE
--- NOTE | 2018-08-03 04:13 | PAIN ---
DATE OF SERVICE: 08/02/2018 PROGRESS NOTE FOR PAIN CLINIC DIAGNOSIS: Lumbar radiculopathy with lumbar degenerative disk disease. HISTORY OF PRESENT ILLNESS: The patient is a 53-year-old female who returns for followup status post lumbar epidural steroid injection x 2, most recently seen on 07/16/2018. The patient did very well with about 90% improvement in the low back and left lower extremity. The patient reports the pain is doing much better. She still has some soreness in the medial aspect of the upper thigh on the left side. The patient reports otherwise doing quite well. She has been increasing her activity, distance walking, doing work activities, household activities, traveling with greater ease and comfort. The patient reports it awakens her from sleep occasionally on the right leg and the inner thigh about every 4-5 hours but otherwise, her back and left leg is doing much better in a radicular pattern. The patient reports her pain is a 10 on a scale of 10 at its worst, average and at its least over the past weeks secondary only to the medial and inner thigh, her back and leg. Otherwise, she is doing much better about 90% improved. The patient reports no new changes and no new bowel or bladder incontinence or other complaints. PHYSICAL EXAMINATION: VITAL SIGNS: The patient's blood pressure is 155/95, pulse 114, respirations 16 and temperature 98.4 degrees Fahrenheit. Height is 5 feet 6 inches and weight is 283 pounds. GENERAL: The patient is awake, alert, oriented, appropriate and very pleasant demeanor. HEENT: Head shows normocephalic and atraumatic. Extraocular movements are intact and symmetrical. Oral cavity, mucous membranes are moist and pink. Dentition is intact. NECK: Shows anterior throat supple without palpable lymphadenopathy noted. Swallow reflex is symmetrical. CHEST: Shows normal with inspection. Breath sounds clear to auscultation bilaterally. HEART: Shows S1 and S2 clear. No murmurs auscultated. ABDOMEN: Obese, soft, nontender and nondistended. No palpable organomegaly is noted. No rebound or guarding demonstrated. BACK: Shows spine grossly in the midline. Normal appearing thoracic kyphosis and some minor flattening of the lumbar lordotic curvature. Lumbar paraspinous muscle shows symmetrical on inspection, on palpation shows some moderate tenderness diffusely in the low lumbar distribution but with only diffusely without radiation. The patient has good rotational motion both laterally as well as extension and flexion without significant increase in pain or difficulty. EXTREMITIES: The patient's lower extremities show deep tendon reflexes 2+ in the patellar, 1+ tendo-calcaneus tendons. Motor exam is approximately 4 on a scale of 5 with left dorsiflexion, extension, 5/5 on the right with palpation in the medial aspect of the inner quadriceps on the left shows significant firm rope-like musculature, very firm and diffusely tender in the medial aspect of the medial quadriceps right side shows supple and nontender musculature with palpation. The patient is walking without significant favoring the right or left lower extremity with a normal-appearing gait and no assistive devices. Peripheral pulses are 1+ posterior tibia. No peripheral edema is noted. Options were discussed with the patient. The patient's old chart was reviewed as well as her current medication regimen updated. Current review of systems updated today as well and we will hold on any further injections at this time as she is doing much better with the radicular component and low back pain. We encouraged the patient to do some stretching and strengthening exercises with the left leg as well as heat application to the affected musculature in the medial upper quadriceps. The patient will try this and follow up on as needed basis at this time, if not significantly improved. NUNO BUSTOS MD DR: SADI/ramila JOB#: [id number] / [id number]
== END | disposition home or self-care (01) ==
LOC: PNCL 13:15
PROVIDERS: ATTEND Anesthesiology
DX: M51.16 Intervertebral disc disorders with radiculopathy, lumbar region (principal)
CPT/HCPCS: G0463

== ENCOUNTER → 2018-11-11 | Outpatient (CLI) | payer OTHER ==
[~2018-11-11] MED LIST changes: +IOHEXOL 180 MG/ML 10 ML VIAL. ONE; +methylPREDNISolone ACETATE 40 MG/ML VIAL. ONE; +methylPREDNISolone ACETATE 80 MG/ML VIAL. ONE
--- NOTE | 2018-11-11 21:58 | PAIN ---
DATE OF SERVICE: 11/11/2018 PROGRESS NOTE FOR PAIN CLINIC DIAGNOSIS: Lumbar radiculopathy with lumbar degenerative disk disease. HISTORY OF PRESENT ILLNESS: The patient is a 53-year-old female who returns for followup status post lumbar epidural steroid injection x 2, most recently on 07/16/2018. The patient did well, about 90% improvement. Pain has been returning now in the low back and bilateral lower extremities, mostly on the left side, over the anterior lateral aspect of the thigh and anterior medial thigh and medial lower leg. The patient reports it is a 6 on a scale of 10 at its worst, 5-6 on average, 2 at its least, and is a 6 today. The patient reports no new motor or sensory deficits, no new bowel or bladder incontinence, worse with walking and standing, better with sitting or lying down, does not awaken her from sleep at night. PHYSICAL EXAMINATION: VITAL SIGNS: The patient's blood pressure is 146/107, pulse 111, respirations are 18, temperature 98.1 degrees Fahrenheit. GENERAL: The patient is awake, alert, oriented, appropriate, very pleasant demeanor. HEENT: Shows normocephalic, atraumatic. Extraocular movements are intact and symmetrical. Oral cavity: Mucous membranes are moist and pink. Dentition is intact. NECK: Shows anterior throat supple without palpable lymphadenopathy noted. Swallow reflex is symmetrical. CHEST: Shows normal on inspection. Breath sounds are clear to auscultation bilaterally. HEART: Shows S1, S2 clear. No murmurs auscultated. ABDOMEN: Soft, nontender, nondistended. No palpable organomegaly is noted. No rebound or guarding demonstrated. BACK: Shows spine grossly in the midline, normal appearing thoracic kyphosis and minor flattening of lumbar lordotic curvature with tattooing again noted. Lumbar paraspinous muscle shows symmetrical on inspection, on palpation shows some moderate tenderness diffusely bilaterally, but only diffusely without radiation. The patient has good rotational motion of lumbar spine, both laterally as well as extension and flexion without significant difficulty. EXTREMITIES: The patient's lower extremities show deep tendon reflexes at 2+ in the patellar, 1+ tendo-calcaneus tendons. Motor exam is strong with 5/5 dorsiflexion and extension bilaterally. Peripheral pulses are 1+ posterior tibia. No peripheral edema is noted. Options were discussed with the patient. The patient's old chart was reviewed as her current medication regimen updated. Current review of systems updated today as well. We will proceed with a third in the series of lumbar epidural steroid injection today with fluoroscopic guidance. Risks were again discussed including, but not limited to bleeding, infection, possibility of epidural hematoma, subsequent neurological compromise, dural puncture, headaches, spinal cord and/or nerve damage, side effects of steroid medication, and poor results regarding pain control. The patient understands and wished to proceed. The patient will return to clinic in approximately 2 weeks for followup. She was counseled as to return appointment, activity level, and side effects to be aware of. DIAGNOSIS: Lumbar radiculopathy with lumbar degenerative disk disease. PROCEDURE: Lumbar epidural steroid injection, translaminar approach, at the L4-L5 level using C-arm fluoroscopic guidance, under sterile prep and drape using local anesthetic. MEDICATION INJECTED: A total of 120 mg of Depo-Medrol plus 10 mL of preservative-free normal saline and 2 mL of contrast. CONDITION AT DISCHARGE: Stable. The patient tolerated the procedure well, had no complications. NUNO BUSTOS MD DR: SADI/ramila JOB#: [id number] / [id number]
== END ==
LOC: PNCL 14:04
PROVIDERS: ATTEND Anesthesiology
DX: M51.16 Intervertebral disc disorders with radiculopathy, lumbar region (principal)
CPT/HCPCS: 62323; J1030; J1040; Q9965

== ENCOUNTER → 2018-11-30 | Outpatient (CLI) | payer OTHER ==
[~2018-11-30] MED LIST changes: -IOHEXOL 180 MG/ML 10 ML VIAL. ONE; -methylPREDNISolone ACETATE 40 MG/ML VIAL. ONE; -methylPREDNISolone ACETATE 80 MG/ML VIAL. ONE
--- NOTE | 2018-12-01 08:32 | KCIC ---
BILATERAL SCREENING MAMMOGRAM, 3-D History: Routine screening. Comparison: Bilateral mammogram August 20, 2017. Technique: MLO and CC digital tomosynthesis (3D) images obtained. Radiologist reviewed these images on dedicated workstation. Findings: Breast Tissue Density B : There are scattered areas of fibroglandular density. Glandular nodularity and a few benign calcifications are redemonstrated bilaterally. There are no dominant masses, suspicious microcalcifications, or architectural distortion. IMPRESSION: No mammographic evidence of malignancy. Recommend routine screening. BI-RADS category 2: Benign findings. The images were reviewed with computer-aided detection. Patient information is entered into reminder system with a target due date for the next screening mammogram. Mammography is the most sensitive method for finding small breast cancers, but it does not detect them all and is not a substitute for careful clinical examination. A negative mammogram does not negate a clinically suspicious finding and should not result in delay in biopsying a clinically suspicious abnormality. "Our facility is accredited by the [employer] Mammography Program." Electronically signed by: Iván Tang MD (12/01/2018 8:29 AM) [id number]
== END | disposition home or self-care (01) ==
LOC: KCIC MAMMO 14:09
PROVIDERS: ATTEND Family Medicine
DX: Z12.31 Encounter for screening mammogram for malignant neoplasm of breast (principal); N64.89 Other specified disorders of breast
CPT/HCPCS: 77063; 77067

== ENCOUNTER → 2019-02-03 | Outpatient (CLI) | payer OTHER ==
--- NOTE | 2019-02-03 12:32 | PAIN ---
DATE OF SERVICE: 02/03/2019 PROGRESS NOTE FOR PAIN CLINIC DIAGNOSIS: Lumbar radiculopathy with lumbar degenerative disk disease. HISTORY OF PRESENT ILLNESS: The patient is a 54-year-old female who returns for followup status post lumbar epidural steroid injection x 3, most recently 11/11/2018. The patient had about 80% improvement initially, now about 60% improvement for the first month and a half, was doing much better. The pain is beginning to return now in the low back and into the left lower extremity as it was previously, posterior gluteus, posterolateral thigh, lateral anterior thigh, medial thigh, medial lower leg, medial calf as well as the posterior calf on the left side, some on the right occasionally, but generally the left side much worse, especially on the anterior lateral thigh. The patient reports it is a 6 on a scale of 10 at all times over the past week, 6 on average, 6 at its worst, 6 at its least and is a 6 on a scale of 10 today. The patient reports it is cramping, burning, tight, on and off in intensity, worse with walking, standing, changing positions, better with sitting or lying down, does not awaken her from sleep at night. Initially, she was doing better with increased distance walking, doing work activities, household activities with greater ease and comfort, now the pain is returning, but still not awaken her from sleep. When she is lying down, it is much better. The patient reports no new motor or sensory deficits, no new bowel or bladder incontinence or other complaints. PHYSICAL EXAMINATION: VITAL SIGNS: The patient's blood pressure 158/100, pulse 119, respirations 18, temperature 98.2 degrees Fahrenheit, height is 5 feet 6 inches, weighs 291 pounds. GENERAL: The patient is awake, alert, oriented, appropriate, very pleasant demeanor. HEENT: Shows normocephalic, atraumatic. Extraocular movements are intact and symmetrical. Oral cavity: Mucous membranes moist and pink. Dentition is intact. NECK: Shows anterior throat supple without palpable lymphadenopathy noted. Swallow reflex symmetrical. CHEST: Shows normal on inspection. Breath sounds clear bilaterally. HEART: Shows S1, S2 clear. No murmurs auscultated. ABDOMEN: Obese, soft, nontender, nondistended. No palpable organomegaly is noted. No rebound or guarding demonstrated. BACK: Shows spine grossly in the midline. Normal-appearing thoracic kyphosis, some minor flattening of lumbar lordotic curvature. Lumbar paraspinous muscle shows symmetrical on inspection, with palpation shows some moderate tenderness diffusely bilaterally going diffusely without significant radiation. EXTREMITIES: The patient's lower extremities show deep tendon reflexes at 2+ in the patellar, 1+ tendo-calcaneus tendons. Motor exam is 4 on a scale of 5 on the left and 5/5 on the right. Peripheral pulses are 1+ posterior tibia. No peripheral edema is noted. The patient's straight leg raise noted to be positive on the left at approximately 40 degrees, decreased with knee flexion, right side is negative. Peripheral pulses are 1+ posterior tibia. No peripheral edema is noted bilaterally. Options were discussed with the patient. The patient's old chart was reviewed as her current medication regimen updated. Current review of systems updated today as well. We will preauthorize the patient for a lumbar epidural steroid injection. She still has clinical radiculopathy on the left at L4-L5 dermatomal distribution doing much better after the last injection about a month and a half about 80% improvement, now down to about 60% overall, still with radicular pain in the left lower extremity. We will plan on return for a lumbar epidural steroid injection, translaminar approach at L4-L5 level with fluoroscopy. The patient was given Medrol Dosepak in the meantime, also given Valium 10 mg 1 tablet to take 1 hour prior to procedure and will have a armored car guard and driver with her for the procedure as well. NUNO BUSTOS MD DR: SADI/ramila JOB#: [id number] / [id number]
== END | disposition home or self-care (01) ==
LOC: PNCL 10:41
PROVIDERS: ATTEND Anesthesiology
DX: M51.16 Intervertebral disc disorders with radiculopathy, lumbar region (principal)
CPT/HCPCS: G0463

== ENCOUNTER → 2019-02-15 | Outpatient (CLI) | payer OTHER ==
[~2019-02-15] MED LIST changes: +IOHEXOL 180 MG/ML 10 ML VIAL. ONE; +methylPREDNISolone ACETATE 40 MG/ML VIAL. ONE; +methylPREDNISolone ACETATE 80 MG/ML VIAL. ONE
--- NOTE | 2019-02-15 23:58 | PAIN ---
DATE OF SERVICE: 02/15/2019 PROGRESS NOTE FOR PAIN CLINIC DIAGNOSIS: Lumbar radiculopathy with lumbar degenerative disk disease. HISTORY OF PRESENT ILLNESS: The patient is a 54-year-old female who returns for followup status post lumbar epidural steroid injections, most recently 01/11/2019. The patient did very well with about 80% improvement. The pain began to return, however, a few months later and the pain is now in the low back and mostly in the left lower extremity posteriorly bilaterally in the right and left lower extremity, posterior gluteus, posterior thigh on the right and the left and into the lower leg on the left side only and into the ankle on the left. The patient reports it is cramping, aching, sharp at times in the back, worse with walking, standing, changing positions, better with sitting or lying down, does not awaken her from sleep at night. The patient reports it is a 6 on a scale of 10, its worst over the past week, 6 on average and a on a 3 at its least and is a 3 today. The patient reports no new motor or sensory deficits, no new bowel or bladder incontinence or other complaints. PHYSICAL EXAMINATION: VITAL SIGNS: The patient's blood pressure 182/111, pulse 119, respirations 18, temperature 97.3 degrees Fahrenheit, height is 5 feet 6 inches. GENERAL: The patient is awake, alert, oriented, appropriate, very pleasant demeanor. HEENT: Shows normocephalic, atraumatic. Extraocular movements are intact and symmetrical. Oral cavity: Mucous membranes moist and pink. Dentition is intact. NECK: Shows anterior throat supple without palpable lymphadenopathy noted. Neck shows full rotational motion of the cervical spine without difficulty, both laterally as well as extension and flexion. CHEST: Shows normal on inspection. Breath sounds are clear bilaterally. HEART: Shows S1, S2 clear. ABDOMEN: Obese, soft, nontender, nondistended. No palpable organomegaly is noted. No rebound or guarding demonstrated. BACK: Shows spine grossly in the midline. Normal appearing thoracic kyphosis and some minor flattening of lumbar lordotic curvature. Lumbar paraspinous muscle shows symmetrical on inspection, with palpation shows some moderate tenderness diffusely bilaterally and diffusely without significant radiation. The patient shows some tattooing in the low back as well on the skin as noted previously. The patient shows good rotational motion of lumbar spine. EXTREMITIES: Lower extremities show deep tendon reflexes 2+ in the patellar, 1+ tendo-calcaneus tendons. Motor exam is 4 on a scale of 5 with left dorsiflexion, extension, 5/5 on the right. Peripheral pulses are 1+. No peripheral edema is noted. Options were discussed with the patient. The patient's old chart was reviewed as her current medication regimen updated. Current review of systems updated today as well. We will proceed with a lumbar epidural steroid injection today with fluoroscopic guidance as the first in this series. Risks were again discussed including, but not limited to bleeding, infection, possibility of epidural hematoma, subsequent neurological compromise, dural puncture, headaches, spinal cord and/or nerve damage, side effects of steroid medication and poor results regarding pain control. The patient understands and wished to proceed. The patient will return to clinic in approximately 2 weeks for followup. She was counseled on return appointment, activity level and side effects to be aware of. DIAGNOSIS: Lumbar radiculopathy with lumbar degenerative disk disease. PROCEDURE: Lumbar epidural steroid injection, translaminar approach, L4-L5 level using C-arm fluoroscopic guidance under sterile prep and drape using local anesthetic. MEDICATION INJECTED: A total of 120 mg Depo-Medrol plus 10 mL preservative-free normal saline, 2 mL of contrast. CONDITION AT DISCHARGE: Stable. The patient tolerated procedure well, had no complications. NUNO BUSTOS MD DR: SADI/ramila JOB#: [id number] / [id number]
== END ==
LOC: PNCL 09:38
PROVIDERS: ATTEND Anesthesiology
DX: M51.16 Intervertebral disc disorders with radiculopathy, lumbar region (principal)
CPT/HCPCS: 62323; J1030; J1040; Q9965